=== PATIENT | female | born 1950 | race Caucasian/White ===

== ENCOUNTER 2018-04-19 15:33 | Outpatient (CLI) | payer OTHER ==
--- NOTE | 2018-04-19 16:34 | ULT ---
ULTRASOUND THYROID: 04/19/2018 HISTORY: A 68-year-old female with multiple thyroid nodules. COMPARISON: None available. FINDINGS: Isthmus: 0.3 cm anteroposterior. Right lobe: 5.0 x 1.4 x 1.7 cm. Left lobe: 5.0 x 1.2 x 1.9 cm. There are multiple bilateral thyroid nodules: A 0.3 x 0.7 x 0.2 cm solid nodule, right upper pole. A 0.3 x 0.3 x 0.2 cm hypoechoic, probably cystic, tiny nodule at the right lower pole. A 0.4 x 0.5 x 0.3 cm solid nodule at the right lower pole. A 0.4 x 0.6 x 0.3 cm solid nodule at the left upper pole. A 1.2 x 1.0 x 0.5 cm mixed solid and cystic nodule at the upper pole. TI-RADS categorization for the largest nodule (the 1.2 cm nodule at left upper pole): Composition: Mixed cystic and solid: 1 point Echogenicity: Hypoechoic: 2 points Shape: Wider than tall: 0 points Margin: Smooth: 0 points Echogenic foci: None: 0 points Total points: 3 TI-RADS category 3: Mildly suspicious. The general recommendation for category 3 thyroid lesions is fine needle aspiration if greater than o r equal to 2.5 cm and serial followup if greater than or equal to 1.5 cm (at 1, 3, and 5 years). This lesion is less than 1.5 cm. Therefore, no followup is recommended. The same is true for all the other, smaller nodules IMPRESSION: 1. Multiple small bilateral thyroid nodules. 2. No followup or fine needle aspiration recommended. POS: [facility]
== END 2018-04-19 15:34 | disposition home or self-care (01) ==
LOC: BICULT 15:33
DX: E04.2 Nontoxic multinodular goiter (principal)
CPT/HCPCS: 76536

== ENCOUNTER 2023-02-01 06:00 | Observation (INO) | payer MEDICARE ==
[2023-02-01] MEDS ORDERED: Vancomycin 1 GM/200 ML (FROZEN) BAG ONE (06:26)
[2023-02-01] MEDS ORDERED: Tranexamic Acid 1,000 MG/10 ML VIAL ONE (06:26)
[2023-02-01] MEDS ORDERED: Sodium Chloride 0.9% 100 ML ONE ×2 (06:26→06:52)
[2023-02-01] MEDS ORDERED: Midazolam HCl 2 mg/2 ml Vial ONE (06:47)
[2023-02-01] MEDS ORDERED: Ropivacaine 0.2% HCl/PF 20 ML ONE (06:47)
[2023-02-01] MEDS ORDERED: fentaNYL 50 mcg/mL 1 mL Vial ONE (06:47)
[2023-02-01] MEDS ORDERED: Ropivacaine 0.5% HCl/PF (150 MG/30 ML VIAL) ONE (06:47)
[2023-02-01] MEDS ORDERED: CEFAZOLIN 2 GM VIAL ONE (06:52)
[2023-02-01] MEDS ORDERED: Metoclopramide HCl 10 MG/2 ML VIAL ONE (07:26)
[2023-02-01] MEDS ORDERED: Ondansetron PF 4 MG/2 ML Vial ONE (07:26)
[2023-02-01] MEDS ORDERED: Lidocaine 1% PF 5 ML VIAL ONE (07:26)
[2023-02-01] MEDS ORDERED: Rocuronium Bromide 10 MG/ML (10ML VIAL) ONE (07:26)
[2023-02-01] MEDS ORDERED: Ketorolac Tromethamine 30 MG/ML VIAL ONE (07:26)
[2023-02-01] MEDS ORDERED: ePHEDrine Sulfate 50 MG/10 ML VIAL ONE (07:26)
[2023-02-01] MEDS ORDERED: Dexamethasone 20 MG/5 ML VIAL ONE (07:26)
[2023-02-01] MEDS ORDERED: PROPOFOL 200 MG/20 ML VIAL ONE (07:26)
[2023-02-01] MEDS ORDERED: diphenhydrAMINE 50 MG/ML VIAL ONE (07:26)
[2023-02-01] MEDS ORDERED: fentaNYL 50 mcg/mL 1 mL Vial SLOW IVP PRN (07:39)
[2023-02-01] MEDS ORDERED: Ropivacaine 0.2% 550 ML 550 ML NERVE BLCK SCH (07:45)
[2023-02-01] MEDS ORDERED: Ondansetron PF 4 MG/2 ML Vial IVP PRN ×2 (07:45→09:29)
[2023-02-01] MEDS ORDERED: HYDROcodone/Acetaminophen 10/325 mg Tablet PO PRN ×4 (07:45→09:29)
[2023-02-01] MEDS ORDERED: Promethazine HCl 25 MG/ML VIAL IM PRN (07:45)
[2023-02-01] MEDS ORDERED: Zolpidem Tartrate 5 MG TAB PO PRN ×2 (07:45→09:29)
[2023-02-01] MEDS ORDERED: diphenhydrAMINE 50 MG CAP PO PRN (09:29)
[2023-02-01] MEDS ORDERED: Milk Of Magnesia 30 ML UDCUP PO PRN (09:29)
[2023-02-01] MEDS ORDERED: Methocarbamol 1 GM/10 ML VIAL SLOW IVP PRN (09:29)
[2023-02-01] MEDS ORDERED: Acetaminophen 325 MG TAB PO PRN (09:29)
[2023-02-01] MEDS ORDERED: Bisacodyl 10 MG SUPP PR PRN (09:29)
[2023-02-01] MEDS ORDERED: Methocarbamol 500 MG TAB PO PRN (09:29)
[2023-02-01] MEDS ORDERED: Ondansetron ODT 4 MG TAB PO PRN (09:29)
[2023-02-01] MEDS ORDERED: Famotidine 20 MG TAB PO SCH (10:45)
[2023-02-01] MEDS ORDERED: SUGAMMADEX SODIUM 200 MG/2 ML VIAL ONE (11:04)
[2023-02-01] MEDS ORDERED: Benzocaine/Menthol 1 LOZ LOZ PO PRN (11:31)
[2023-02-01] MEDS ORDERED: HYDROcodone/Acetaminophen 5/325 mg Tablet PO PRN (13:21)
[2023-02-01] MEDS: CEFAZOLIN 2 GM in Sodium Chloride 0.9% 100 ML IVPB SCH ×2 (15:06→22:53)
[2023-02-01] MEDS: Ketorolac Tromethamine 30 MG/ML VIAL IVP SCH ×3 (16:17→22:54)
[2023-02-01] MEDS: Lactated Ringer's 1,000 ML IV SCH ×2 (19:33→21:39)
[2023-02-01] MEDS: Famotidine 20 MG TAB PO SCH (19:35)
[2023-02-02] MEDS: Ketorolac Tromethamine 30 MG/ML VIAL IVP SCH ×2 (05:44→13:01)
[2023-02-02] MEDS: Famotidine 20 MG TAB PO SCH (11:02)
[2023-02-02 12:09] VITALS: BMI 22.3
[2023-02-02 12:47] VITALS: TEMP 97.6
[2023-02-02 13:46] VITALS: BP 134/68
== END 2023-02-02 15:28 | disposition home or self-care (01) ==
LOC: SDC 06:00 → SURG B 09:39
PROVIDERS: ADMIT Orthopaedic Surgery; ATTEND Orthopaedic Surgery
PROC: 0RRK0JZ Replacement of Left Shoulder Joint with Synthetic Substitute, Open Approach (ICD-10-PCS; principal; 2023-02-01)
PROC: 0LS40ZZ Reposition Left Upper Arm Tendon, Open Approach (ICD-10-PCS; 2023-02-01)
DX: M19.012 Primary osteoarthritis, left shoulder (principal); M75.22 Bicipital tendinitis, left shoulder; E78.5 Hyperlipidemia, unspecified; Z88.8 Allergy status to other drugs, medicaments and biological substances; Z88.5 Allergy status to narcotic agent; Z79.899 Other long term (current) drug therapy
CPT/HCPCS: 23472; 24340; 97110; 97116 ×2; 97535; A4306; C1713 ×2; C1776 ×2; J3010; J3370; C1889; J1100; J1200; J1885; J2250; J2405; J2550; J2704; J2765; J2795; J3490; Q0162